=== PATIENT | male | born 1995 | race Two or more races ===

== ENCOUNTER 2016-10-02 12:26 | Emergency (ER) | payer OTHER ==
[~2016-10-02] VITALS: Ht 175.3 cm; Wt 87.6 kg
[2016-10-02] MEDS ORDERED: ASPIRIN 81 MG TABLET CHEW PO ONE (14:00)
[2016-10-02 14:13] LABS: HEMATOCRIT 46.9 % (39.2-51.8); HEMOGLOBIN 15.8 g/dL (13.7-18.0); WHITE BLOOD COUNT 7.7 x10^3/uL (3.4-10)
[2016-10-02] MEDS ORDERED: ASPIRIN 81 MG TABLET CHEW ONE (14:14)
[2016-10-02 14:22] LABS: BLOOD UREA NITROGEN 9 mg/dL (7-18)
[2016-10-02 14:50] LABS: IS PT STATUS REG ER OR PRE ER? YES
[2016-10-02 15:35] VITALS: BP 110/32
== END 2016-10-02 15:37 | disposition home or self-care (01) ==
LOC: ED 13:57
DX: R07.89 Other chest pain (principal)
CPT/HCPCS: 36415; 71010; 80048; 82040; 84484; 85025; 93005; 99285